=== PATIENT | female | born 1960 | race Caucasian/White ===

== ENCOUNTER 2021-01-20 16:43 | Emergency (ER) | payer MEDICAID ==
[~2021-01-20] VITALS: Ht 162.6 cm; Wt 86.4 kg
[~2021-01-20 16:43] MED LIST: ALBU18HF2 INH; ASPI-611 PO; ATOR40TA72 PO; BECL8.7A7 IH; DICY20TA11 PO; DOCU100C40 PO; GLYC1MED64 RC; LEVO25TA7 PO; LOP25T PO; MYC15CR TP; NITR0.4T51 SL; NYSPWD TP; OMEP40CA21 PO; PSYL283P18 PO; RISP2TAB97 PO; TRAM50TA2 PO
[2021-01-20] MEDS ORDERED: ondansetron/PF 4mg/2ml inj IV ONE (17:30)
[2021-01-20] MEDS ORDERED: ONDA4TAB6 PO (18:25)
[2021-01-20 20:04] VITALS: BP 102/71
== END 2021-01-20 22:07 | disposition home or self-care (01) ==
LOC: ER 16:44
DX: R11.2 Nausea with vomiting, unspecified (principal); I50.9 Heart failure, unspecified; J44.9 Chronic obstructive pulmonary disease, unspecified; E03.9 Hypothyroidism, unspecified; Z98.890 Other specified postprocedural states; Z79.82 Long term (current) use of aspirin; Z88.0 Allergy status to penicillin; Z79.899 Other long term (current) drug therapy
CPT/HCPCS: 96374; 99283; J2405

== ENCOUNTER 2021-05-10 13:50 | Emergency (ER) | payer MEDICAID ==
[~2021-05-10] VITALS: Ht 154.9 cm; Wt 90.9 kg
[~2021-05-10 13:50] MED LIST changes: -DICY20TA11 PO; +DICY20TA2 PO; +ONDA4TAB6 PO
[2021-05-10] MEDS ORDERED: normal saline 1000ML IV soln IVB ONE (14:10)
[2021-05-10 14:28] LABS: BASOPHILS # (AUTO) 0.1 X10'3 (0-0.2); BASOPHILS % (AUTO) 0.7 % (0-1); EOSINOPHILS % (AUTO) 0.2 % (0-6); HEMATOCRIT 45.7 % (35.0-45.0); HEMOGLOBIN 15.5 g/dl (12.0-16.0); LYMPHOCYTES % (AUTO) 17.7 % (21-51); MEAN CORPUSCULAR HEMOGLOBIN 32.6 PG (27.0-31.0); MEAN CORPUSCULAR VOLUME 95.9 FL (78-98); MEAN PLATELET VOLUME 9.8 FL (7.4-10.4); MONOCYTES # (AUTO) 0.9 X10'3 (0-0.9); NEUTROPHILS # (AUTO) 8.3 X10'3 (1.8-7.7); NEUTROPHILS % (AUTO) 73.4 % (42-75); PLATELET COUNT 213 X10'3 (140-440); RED BLOOD COUNT 4.76 X10'6 (4.20-5.60); RED CELL DISTRIBUTION WIDTH 13.7 % (11.5-14.5); WHITE BLOOD COUNT 11.3 X10'3 (4.5-11.0)
[2021-05-10 14:57] LABS: ALANINE AMINOTRANSFERASE 17 U/L (12-78); ALBUMIN 3.5 G/DL (3.4-5.0); ALBUMIN/GLOBULIN RATIO 0.8 (1.1-1.5); ALKALINE PHOSPHATASE 87 IU/L (46-116); ANION GAP 9 (8-16); ASPARTATE AMINO TRANSFERASE 20 U/L (10-37); BILIRUBIN,TOTAL 0.8 MG/DL (0.1-1.0); BLOOD UREA NITROGEN 26 MG/DL (7-18); BUN/CREATININE RATIO 20.5 (6.6-38.0); CALCIUM 9.2 MG/DL (8.5-10.1); CHLORIDE 100 MMOL/L (99-107); CREATININE 1.27 MG/DL (0.40-0.90); GLUCOSE 138 MG/DL (70-104); POTASSIUM 3.5 MMOL/L (3.5-5.1); SODIUM 139 MMOL/L (135-145); TOTAL CARBON DIOXIDE 30.4 MMOL/L (24-32); TOTAL PROTEIN 7.9 G/DL (6.4-8.2); eGFR 43 ML/MIN
--- NOTE | 2021-05-10 16:00 | NUR ---
Patient cleaned of incontinence.
[2021-05-10 18:11] VITALS: BP 99/50
--- NOTE | 2021-05-10 20:07 | NUR ---
PT PICKED UP BY [facility]
== END 2021-05-10 20:07 | disposition home or self-care (01) ==
LOC: ER 13:50
DX: Z13.89 Encounter for screening for other disorder (principal); R19.7 Diarrhea, unspecified; R11.2 Nausea with vomiting, unspecified; R09.02 Hypoxemia; K59.00 Constipation, unspecified; I50.9 Heart failure, unspecified; J44.9 Chronic obstructive pulmonary disease, unspecified; E03.9 Hypothyroidism, unspecified; Z98.890 Other specified postprocedural states; Z88.0 Allergy status to penicillin; Z79.82 Long term (current) use of aspirin; Z79.899 Other long term (current) drug therapy
CPT/HCPCS: 36415; 71045; 80053; 85025; 96360; 96361; 99285; J7030